=== PATIENT | male | born 1960 ===

== ENCOUNTER → 2017-03-16 | Outpatient (CLI) | payer OTHER ==
[2017-03-16 19:26] LABS: HEPATITIS B AB NEG
--- NOTE | 2017-03-18 13:50 | CODING QUERY NO DIAGNOSIS ---
TREATMENT RENDERED WITHOUT A DIAGNOSIS 60 To promote full compliance with coding requirements relating to patient care, physician participation is requested in all cases of intraoperative neuro tech uncertainty. Please assist us with providing a diagnosis/symptom for the test(s) below: A diagnosis/symptom was not documented on your Order. A valid diagnosis/symptom is required to bill all insurances. Please remember that we are unable to code a diagnosis of rule out, probable, possible, questionable, or suspected. DOS 03/16/17 Tests that require a diagnosis: * HEPATITIS A VIRUS IgM DIAGNOSIS: * HEPATITIS A ANTIBODY DIAGNOSIS: * HEPATITIS B AB DIAGNOSIS: * HEPATITIS C IGG DIAGNOSIS: * HIV 4THGEN DIAGNOSIS: Provider Signature: Date: Thank you Carla [facility] Information Management Once completed, please kindly fax back to [phone] For questions please call [phone]
== END | disposition home or self-care (01) ==
LOC: C.LABSPEC 12:00
PROVIDERS: ATTEND Orthopaedic Surgery Sports Medicine
DX: Z77.21 Contact with and (suspected) exposure to potentially hazardous body fluids (principal)